=== PATIENT | male | born 1980 | race Caucasian/White ===

== ENCOUNTER 2023-06-12 20:20 | Emergency (ER) | payer OTHER, SELFPAY ==
[2023-06-12 20:34] VITALS: BP 142/67; PULSE 77; RESP 16; TEMP 36.8; O2SAT 96; BMI 21.2
[2023-06-12] MEDS: PROPARACAINE 0.5% OPHTH SOL 1 DROPS EYE-LEFT (20:41)
--- NOTE | 2023-06-13 00:05 | PC.NURSE ---
paper business card hit open left eye, pain and eye watering since then
[2023-06-13] MEDS: FLUORESCEIN 1 MG STRIP EYE-LEFT (00:19)
--- NOTE | 2023-06-13 00:38 | ED.EYEPROB ---
HPI - Eye Problem General Chief complaint: Eye Problems Stated complaint: eye injury Time Seen by Provider: 06/12/23 23:37 Source: patient Mode of arrival: Ambulatory History of Present Illness HPI Narrative: 43-year-old male presents with left eye pain after reportedly scratching his eye with a piece of paper just prior to arrival. No other complaints or injuries or associated symptoms noted. Patient arrives via private vehicle. Patient is ambulatory awake, alert, in no apparent distress and maintaining his own airway Related Data Previous Rx's Medication Instructions Recorded erythromycin 5 mg/gram (0.5 %) eye 0.5 inch EYE-LEFT TID #3.5 grams 06/13/23 ointment Allergies Allergy/AdvReac Type Severity Reaction Status Date / Time No Known Drug Allergies Allergy Verified 06/12/23 20:37 Review of Systems Review of Systems Narrative: See HPI for pertinent positives, otherwise review of systems negative Patient History Social History Smoking Status: Never smoker Smoking Status: Never smoker alcohol intake frequency: a few times a month Substance Use Type: does not use Exam Narrative Exam Narrative: General: Awake, alert, in no apparent distress HEENT: Normocephalic, atraumatic, pupils equal and reactive to light, oropharynx clear, oral mucosa moist, left corneal abrasion Neck: Supple Cardiovascular: 2+ radial bilateral, regular rhythm/rate Pulmonary: Regular respirations, no respiratory distress Abdominal: nondistended : Exam deferred Back: Normal motion Extremities: No tenderness of bilateral upper/lower extremities Skin: Warm, dry, intact, no rashes Neuro: No focal neurological deficits, moving all 4 extremities equally, normal speech Psych: Normal mood, normal affect Initial Vital Signs Initial Vital Signs: Vital Signs Temperature 98.2 F 06/12/23 20:34 Pulse Rate 77 06/12/23 20:34 Respiratory Rate 16 06/12/23 20:34 Blood Pressure 142/67 H 06/12/23 20:34 Pulse Oximetry 96 06/12/23 20:34 Oxygen Delivery Method Room Air 06/12/23 20:34 Course Orders Ordered: Discontinued Medications Diphtheria/Tetanus/Acell Pertussis (Tet,Diph,Pertuss(Acell),Vac/Pf 0.5 Ml Syringe) 0.5 ml IM .ONCE ONE Stop: 06/12/23 20:38 Last Admin: 06/12/23 20:42 Dose: Not Given Documented By: ANTONY Erythromycin (Erythromycin Ophth 1 Gm Oint) 1 applic EYE-LEFT NOW ONE Stop: 06/13/23 00:37 Last Admin: 06/13/23 00:43 Dose: 1 applic Documented By: TRACE Fluorescein Sodium (Fluorescein 1 Mg Strip) 1 mg EYE-LEFT NOW ONE Stop: 06/12/23 23:23 Last Admin: 06/13/23 00:19 Dose: 1 mg Documented By: TRACE Proparacaine HCl (Proparacaine 0.5% Ophth Su) 1 drops EYE-LEFT PRN PRN PRN Reason: Pain, Severe (7-10) Last Admin: 06/12/23 20:41 Dose: 1 drop Documented By: ANTONY Vital Signs Vital signs: Vital Signs - 8 hr 06/12/23 20:34 Temperature 98.2 F Pulse Rate 77 Respiratory Rate 16 Blood Pressure 142/67 H Pulse Oximetry 96 Oxygen Delivery Method Room Air MDM - Eye Problem Differential Diagnosis Differential diagnosis: Likely corneal abrasion, conjunctivitis, hyphema, subconjunctival hemorrhage, corneal ulcer and ruptured globe MDM Narrative Medical decision making narrative: Patient presents with left eye corneal abrasion. Exam is not suggestive globe rupture. Current vital signs are within normal limits/non actionable. Erythromycin ointment given along with a prescription. PCP and Ophthalmology recommended follow-up within 1 week. Return precautions given. Patient discharged home in stable condition. Discharge Plan Departure Patient Disposition: Home Clinical Impression: Corneal abrasion Qualifiers: Encounter type: initial encounter Laterality: left Qualified Code(s): S05.02XA - Injury of conjunctiva and corneal abrasion without foreign body, left eye, initial encounter Instructions: DI for Corneal Abrasion Prescriptions: New erythromycin 5 mg/gram (0.5 %) ointment 0.5 inch EYE-LEFT TID Qty: 3.5 0RF Referrals: Miscellaneous,Doctor, MD [Primary Care Provider] - 3-5 days Stand Alone Forms: Patient Portal/API, Work Release Note
[2023-06-13] MEDS: ERYTHROMYCIN OPHTH 1 GM OINT 1 APPLIC EYE-LEFT (00:43)
[2023-06-13 00:52] VITALS: BP 132/67; PULSE 79; RESP 17; O2SAT 98
== END 2023-06-13 01:01 | disposition home or self-care (01) ==
PROVIDERS: Emergency Provider Emergency Medicine
DX: S05.02XA Injury of conjunctiva and corneal abrasion without foreign body, left eye, initial encounter (principal)
CPT/HCPCS: 99282